=== PATIENT | female | born 1960 | race Caucasian/White ===

== ENCOUNTER 2023-08-31 11:56 | Day surgery (SDC) | payer OTHER ==
[~2023-08-31] VITALS: Ht 175.3 cm; Wt 70.6 kg
[2023-08-31 15:25] VITALS: BP 124/69
--- NOTE | 2023-08-31 16:18 | NUR ---
08/31/23 1618 Danny Winston IV REMOVED INTACT. SITE WNL. PT REPORTED 2/10 PAIN UPON DISCHARGE AND DESCRIBED PAIN TOLERABLE.
== END 2023-08-31 16:05 | disposition home or self-care (01) ==
LOC: ORSCSDS 11:56
PROVIDERS: Podiatrist Foot & Ankle Surgery
PROC: 0YP90YZ Removal of Other Device from Right Lower Extremity, Open Approach (ICD-10-PCS; principal; 2023-08-31 13:45)
DX: T84.84XA Pain due to internal orthopedic prosthetic devices, implants and grafts, initial encounter (principal); F17.200 Nicotine dependence, unspecified, uncomplicated
CPT/HCPCS: A9270; J0690; J1100; J2250; J2405; J2704; J2795; J3010; J7120